=== PATIENT | female | born 1985 | race Caucasian/White ===

== ENCOUNTER → 2016-06-18 | Outpatient (CLI) | payer BC ==
[2016-06-18 08:37] LABS: CH 30.9; CHCM 32.2; HCT 38.6 % (34.0-46.0); HDW 2.03; HGB 12.4 gm/dL (11.4-16.0); MCH 30.9 pg (25.0-35.0); MCHC 32.1 g/dL (31.0-37.0); MCV 96.2 fL (80.0-100.0); Mean Platelet Volume 6.7; RBC 4.01 m/uL (3.80-5.40); RDW 12.4 % (11.5-15.5); WBC 5.5 k/uL (3.8-10.6)
[2016-06-18 08:46] LABS: ALT 26 U/L (9-52); AST 22 U/L (14-36); Alkaline Phosphatase 36 U/L (38-126); Anion Gap 9 mmol/L; Blood Urea Nitrogen 16 mg/dL (7-17); Calcium 9.3 mg/dL (8.4-10.2); Carbon Dioxide 25 mmol/L (22-30); Chloride 107 mmol/L (98-107); Cholesterol 162 mg/dL (<200); Glucose 85 mg/dL (74-99); HDL Cholesterol 78 mg/dL (40-60); Non-African American GFR(MDRD) >60 (>60 ml/min/1.73 sqM); Potassium 4.3 mmol/L (3.5-5.1); Sodium 141 mmol/L (137-145); Total Bilirubin 0.9 mg/dL (0.2-1.3); Total Protein 7.5 g/dL (6.3-8.2); Triglycerides 76 mg/dL (<150)
== END | disposition home or self-care (01) ==
LOC: LABWHC1 08:05
PROVIDERS: ATTEND Family Medicine
DX: Z00.00 Encounter for general adult medical examination without abnormal findings (principal)
CPT/HCPCS: 36415; 80053; 80061; 85027